=== PATIENT | male | born 1975 | race Hispanic/Latino ===

== ENCOUNTER 2019-01-17 19:34 | Emergency (ER) | payer OTHER ==
[~2019-01-17] VITALS: Ht 172.7 cm; Wt 110.7 kg
[2019-01-17] MEDS ORDERED: SODIUM CHLORIDE 0.9% 1000ML 1,000 ML ONE (19:59)
[2019-01-17] MEDS ORDERED: CEFTRIAXONE SOD 1 GM/NS 50 ML 50 ML IV ONE (20:00)
[2019-01-17] MEDS ORDERED: CEFTRIAXONE SOD 1 GM VIAL ONE (20:10)
[2019-01-17] MEDS ORDERED: SODIUM CHLORIDE 0.9% 1000ML 1,000 ML IV ONE (20:15)
== END 2019-01-17 20:48 | disposition home or self-care (01) ==
LOC: FSED 19:34
DX: J01.00 Acute maxillary sinusitis, unspecified (principal); J00 Acute nasopharyngitis [common cold]; J01.20 Acute ethmoidal sinusitis, unspecified
CPT/HCPCS: 85025; 99283; J0696; J7030

== ENCOUNTER 2019-01-18 18:07 | Inpatient (IN) | payer OTHER ==
[~2019-01-18] VITALS: Ht 172.7 cm; Wt 103.4 kg
--- NOTE | 2019-01-18 18:52 | NUR ---
REPORT TO AMISHA TO
[2019-01-18] MEDS ORDERED: KETOROLAC TROMETHAMINE 30 MG/ML VIAL IV ONE (19:01)
[2019-01-18] MEDS ORDERED: SODIUM CHLORIDE 0.9% 1000ML 1,000 ML IV SCH ×2 (19:15→22:15)
[2019-01-18] MEDS ORDERED: SODIUM CHLORIDE 0.9% 1000ML 1,000 ML ONE (19:24)
[2019-01-18] MEDS ORDERED: KETOROLAC TROMETHAMINE 30 MG/ML VIAL ONE (19:24)
--- NOTE | 2019-01-18 20:27 | Diagnostic Imaging Report ---
History: Pain Comparison studies: None Technique: Axial images were obtained from the skull base to the vertex. Coronal and sagittal reconstructions obtained from the axial data. Dose modulation, iterative reconstruction, and/or weight based adjustment of the mA/kV was utilized to reduce the radiation dose to as low as reasonably achievable. Intravenous contrast: None Findings: Scalp/skull: No abnormalities. No fractures, blastic or lytic lesions. Extra-axial spaces: No masses. No fluid collections. Brain sulci: Appropriate for age. Ventricles: Normal in size and configuration. No hydrocephalus. Parenchyma: No abnormal densities. No masses, hemorrhage, acute or chronic cortical vascular insults. Sellar/suprasellar region: No abnormalities Craniocervical junction: Patent foramen magnum. No Chiari one malformation. Incidental findings: None. IMPRESSION: No abnormalities. Signed by: Dr. Earle Vargas M.D. on 01/18/2019 8:23 PM
--- NOTE | 2019-01-18 22:02 | NUR ---
LP COMPLETED, PT LYING IN SUPINE POSITION. PT INSTRUCTED TO CALL FOR ASSISTANCE IF NEEDED. PT VERBALIZED UNDERSTANDING, FAMILY AT BEDSIDE CALL BROWN WITHIN REACH. VSS
[2019-01-18] MEDS ORDERED: ONDANSETRON HCL INJ 2MG/ML 2ML 2 MG/ML VIAL IV STA (22:07)
[2019-01-18] MEDS ORDERED: MORPHINE SULFATE INJ 4 MG/ML INJ 1ML IV PRN (22:15)
[2019-01-18 22:43] LABS: TOTAL PROTEIN,CSF 177.2 mg/dL (15-40)
[2019-01-18 23:18] LABS: APPEARANCE,CSF CLOUDY (CLEAR); TUBE NUMBER 3
[2019-01-18 23:19] LABS: COLOR,CSF XANTHOCHROMIC (COLORLESS)
[2019-01-18 23:20] LABS: WHITE BLOOD CELL,CSF 1640 cells/uL (0-5)
[2019-01-18 23:21] LABS: LYMPHOCYTES,CSF 88 % (40-80); MONOCYTES,CSF 4 %; NEUTROPHILS,CSF 6 % (0-6); OTHER CELLS,CSF 2 %
[2019-01-18] MEDS ORDERED: SODIUM CHLORIDE 0.9% 50ML 50 ML ONE (23:59)
[2019-01-18] MEDS ORDERED: CEFTRIAXONE SOD 1 GM VIAL ONE ×2 (23:59)
[2019-01-19] VITALS (8 sets, daily range): BP systolic 120–148; BP diastolic 78–98
--- NOTE | 2019-01-19 00:12 | NUR ---
[facility] NOTIFIED, ETA 30-45 MINUTES
[2019-01-19] MEDS ORDERED: ONDANSETRON HCL INJ 2MG/ML 2ML 2 MG/ML VIAL IV PRN (00:45)
[2019-01-19] MEDS ORDERED: VANCOMYCIN 1GM/NS 250 ML 250 ML IV ONE (00:45)
[2019-01-19] MEDS ORDERED: VANCOMYCIN 1GM/NS 250 ML 250 ML IV SCH (00:45)
[2019-01-19] MEDS ORDERED: ACETAMINOPHEN 325 MG TAB PO PRN (00:45)
[2019-01-19] MEDS ORDERED: CEFTRIAXONE SOD 2 GM/NS 100 ML 100 ML IV ONE (00:45)
[2019-01-19] MEDS ORDERED: CIPROFLOXACIN 500 MG TAB ONE (00:52)
--- OUTSIDE RECORDS SUMMARY | 2019-01-19 01:33 | XMS REPORT ---
Author Author [facility] Address Unknown Phone Unavailable Care Team Providers Care Facility Technician Name Role Phone Bailee SERRANO Unavailable Unavailable Problems This patient has no known problems. Allergies, Adverse Reactions, Alerts This patient has no known allergies or adverse reactions. Medications This patient has no known medications. Results Test Description Test Time Test Comments Text Results Atomic Results Result Comments CT BRAIN WO-HOPD 2019-01-18 20:23:00 [place] [address] Patient Name: MARÍA ELENA FLORES MR #: [id number] : 1975 Age/Sex: 43/M Req #: [id number] Adm Physician: Ordered by: BABATUNDE SERRANO MD Report #: [id number] Location: [facility] Room/Bed: Procedure: [id number] HOPD/CT BRAIN WO-HOPD Exam Date: 01/18/19 Exam Time: 1999 REPORT STATUS: Signed History: Pain Comparison studies: None Technique: Axial images were obtained from the skull base to the vertex. Coronal and sagittal reconstructions obtained from the axial data. Dose modulation, iterative reconstruction, and/or weight based adjustment of the mA/kV was utilized to reduce the radiation dose to as low as reasonably achievable. Intravenous contrast: None Findings: Scalp/skull: No abnormali ties. No fractures, blastic or lytic lesions. Extra-axial spaces: No masses. No fluid collections. Brain sulci: Appropriate for age. Ventricles: Normal in size and configuration. No hydrocephalus. Parenchyma: No abnormal densities. No masses, hemorrhage, acute or chronic cortical vascular insults. Sellar/suprasellar region: No abnormalities Craniocervical junction: Patent foramen magnum. No Chiari one malformation. Incidental findings: None. IMPRESSION: No abnormalities. Signed by: Dr. Earle Vargas M.D. on 01/18/2019 8:23 PM Dictated By: EARLE VARGAS MD, MD 22 Transcribed By: ESTEVAN on 01/18/192022 COPY TO: BABATUNDE SERRANO MD
--- NOTE | 2019-01-19 01:52 | NUR ---
Patient admitted to room 205 via stretcher. Patient alert to name, place, time, and Dx: Meningitis. Pt states has flulike symptoms x7 days that is accompanied with a headache. Ambulatory with steady gait. AROM x4 extremities. Last BM 01/18, abdomen soft, round and distended. Urine with normal odor. Oriented to room. Bed low and locked. Call otero within reach. Will continue to monitor.
[2019-01-19] MEDS: SODIUM CHLORIDE 0.9% 1000ML 1,000 ML IV SCH ×3 (02:50→16:33)
--- NOTE | 2019-01-19 06:40 | NUR ---
Patient sitting up in bed. Denies pain or discomfort. Call otero within reach.
[2019-01-19] MEDS ORDERED: IBUPROFEN 600 MG TAB PO SCH (08:00)
[2019-01-19 14:01] LABS: HIV 1&2 AB SCREEN NON-REACTIVE (NONREACTIVE)
[2019-01-19] MEDS: VANCOMYCIN HCL 1.5 GM in SODIUM CHLORIDE 0.9% 250ML 300 ML IV SCH (15:08)
[2019-01-19] MEDS: MORPHINE SULFATE 2 MG/ML SYR 1ML IV PRN ×2 (15:39→23:30)
[2019-01-19 17:10] LABS: BASOPHILS # (AUTO) 0.2 (0.0-0.1); BASOPHILS % 1.3 % (0.0-1.0); EOSINOPHILS # (AUTO) 0.6 (0.0-0.4); EOSINOPHILS % 4.9 % (0.0-6.0); HEMATOCRIT 54.5 % (38.2-49.6); HEMOGLOBIN 18.9 g/dL (14.0-18.0); LYMPHOCYTES # (AUTO) 3.4 (1.0-3.2); LYMPHOCYTES % 29.2 % (18.0-39.1); MEAN CORPUSCULAR HEMOGLOBIN 31.6 pg (28-32); MEAN CORPUSCULAR HGB CONC 34.7 g/dL (31-35); MONOCYTES # (AUTO) 1.2 (0.2-0.8); MONOCYTES % 10.3 % (4.4-11.3); NEUTROPHILS # (AUTO) 6.2 (2.1-6.9); NEUTROPHILS % 53.4 % (38.7-80.0); PLATELET COUNT 310 x10e3/uL (140-360); RED BLOOD COUNT 5.99 x10e6/uL (4.3-5.7); RED CELL DISTRIBUTION WIDTH 13.5 % (11.7-14.4)
[2019-01-19 17:27] LABS: ANION GAP 10.8 mmol/L (8-16); BLOOD UREA NITROGEN 7 mg/dL (7-26); BUN/CREATININE RATIO 8 (6-25); CALCIUM 8.6 mg/dL (8.4-10.2); CARBON DIOXIDE 24 mmol/L (22-29); CHLORIDE 102 mmol/L (98-107); CREATININE, SERUM 0.84 mg/dL (0.72-1.25); EST GLOMERULAR FILTRATION RATE > 60 ML/MIN (60-); GLUCOSE 93 mg/dL (74-118); POTASSIUM 3.8 mmol/L (3.5-5.1); SODIUM 133 mmol/L (136-145)
--- NOTE | 2019-01-19 19:07 | History and Physical ---
CHIEF COMPLAINT: Headaches, fevers. HISTORY OF PRESENT ILLNESS: This is a 43-year-old male, who has no past medical history, reports coming into the emergency room at the [facility] with complaints of headaches and fevers ongoing for the last several days. The patient reports that about a week ago last Friday, the patient began to have some fevers, chills, and some myalgias, had a mild headache, went to [facility] and at that time, he was told he had flu-like symptoms and was discharged home. The patient states that he truly never got better and he reports "dragged it out" until Friday of this last week and went to another local ER and was told that he had similar symptoms of flu-like symptoms with no other issues and was discharged on no antibiotics according to the patient. He reports that his headache was excruciatingly painful and decided to go to [facility] ER yesterday. While there, the CT imaging of the brain was performed, was found to be negative. But an LP was performed and was concerning for underlying meningitis with increased WBCs of 1640 seen and was sent then to [facility] for further management and care. He is currently on IV Rocephin and vancomycin and ID has been consulted. REVIEW OF SYSTEMS: Pertinent positives: Headaches, fevers, chills, and myalgias. Pertinent negatives: Denies any chest pain, palpitation, nausea, vomiting, diarrhea, dysuria, hematuria, frequency, urgency, lightheadedness, dizziness, abdominal pain, or any other complaints. The rest of 14-point review of systems are reviewed with the patient and are negative. MEDICATIONS: None. ALLERGIES: NO KNOWN DRUG ALLERGIES. PAST MEDICAL HISTORY: None. PAST SURGICAL HISTORY: None. FAMILY HISTORY: Hypertension and diabetes. SOCIAL HISTORY: No drugs. No alcohol. Does not smoke. Good social support. He is . PHYSICAL EXAMINATION: VITAL SIGNS: Temperature is 97.6, pulse 78, respiratory rate is 21, blood pressure 146/98, and pulse ox 98% on room air. GENERAL: Not in acute distress. Alert and oriented x3. Cooperative on examination. HEENT: Head; normocephalic, atraumatic. Eyes; pupils are equal, round, and reactive to light bilaterally. Extraocular movements intact bilaterally. Throat; no evidence of erythema or exudates in the posterior pharynx. Has poor dentition. NECK: Supple. Good range of motion. PULMONARY: Clear to auscultation bilaterally. No wheezing, no rales, no rhonchi, no crackles appreciated. CARDIOVASCULAR: Positive S1 and S2. No murmurs, rubs, or gallops appreciated. ABDOMEN: Soft, nondistended, and nontender to palpation. Bowel sounds present. MUSCULOSKELETAL: Strength is 5/5 throughout. No evidence of any muscle deficits on examination. No weakness appreciated. NEUROLOGIC: Cranial nerves II through XII grossly intact. No evidence of any neurological deficits on exam. SKIN: Intact. Warm to touch. Good cap refill. PSYCHIATRIC: Normal affect and mood. EXTREMITIES: No edema. Good range of motion throughout. LABORATORY FINDINGS: Show WBC is 10.2, hemoglobin 18.9, hematocrit is 54, and platelets of 302. Sodium 133, potassium 4.2, bicarb 27, chloride 100, glucose 111, calcium 9, BUN 10, and creatinine is 1. ALT 51, AST 36, and total bilirubin is 1.6. Albumin is 4.3. Urinalysis was found to be negative. LP was cloudy, xanthochromic, WBC 1640, and RBC 14. His neutrophils are 6, lymphocytes is 88, monocytes is 4, glucose 29, and total protein is 177. MICROBIOLOGY: CSF cultures are pending despite gram stain shows no organisms, no WBCs. IMAGING STUDIES: CT brain was found to be negative. IMPRESSION: 1. Concerns for underlying bacterial meningitis. 2. Headaches, fevers, chills, concerning for possible #1. PLAN: At this time, LP performed with pending CSF cultures. Bacterial antigen has been ordered. Current gram stain shows no organisms. He will be treated for underlying bacterial meningitis with 2 g of Rocephin q.12 hours and vancomycin 15 mg/kg q.12. We will get vancomycin trough levels before the fourth dose. Infectious Disease was consulted. CT brain was found to be negative. Get a.m. labs. Hold anticoagulation for now because he just recently had an LP last night. We will likely start Lovenox maybe tomorrow. Discussed plan of care with nursing staff as well as Infectious Disease. We will put him on pain control as well. He is supposed to be on airborne droplets as well. MD RIDDHI Crooks/TORY /[id number]
--- NOTE | 2019-01-19 19:15 | NUR ---
Report received from morning nurse. Patient alert, sitting in bed HOB 75 degrees. Denies pain at this time. Bed low and locked. Call otero within reach. Will continue to monitor.
[2019-01-19] MEDS: CEFTRIAXONE SOD 2 GM/NS 100 ML 100 ML IV SCH (22:00)
[2019-01-19] MEDS ORDERED: CEFTRIAXONE SOD 2 GM/NS 100 ML 100 ML IV SCH (22:00)
[2019-01-19] MEDS: ACETAMINOPHEN 325 MG TAB PO PRN (22:00)
[2019-01-20] VITALS (8 sets, daily range): BP systolic 130–150; BP diastolic 81–94
--- NOTE | 2019-01-20 00:02 | Consultation ---
DATE OF CONSULTATION: REASON FOR CONSULTATION: Meningitis. HISTORY OF PRESENT ILLNESS: This patient is very pleasant 43-year-old white male, denies any past medical history. A week ago started to have some headache fever, chills, not feeling well. [facility] They checked him for flu, it was negative. He was told it was dehydration, given some fluid and pain medication, but the headache got really worse, he came in for a 2nd time to an another different emergency room, at that time, he was also examined and evaluated. He got chest x-ray, he told have some type of infection. He was given an IV shot of some type of antibiotic and oral medication as well as steroid and discharged home. Two days later, the headache became even worse, he could not tolerate it, he had some nausea, he came back to the emergency room. For the 3rd time at this time, spinal tap was done and spinal top showed that he had a WBC of 1640, it was mainly lymphocytes with a glucose of 29 and total protein of 177 too, so he was sent to the emergency room. The patient is being admitted. I was asked to see him urgently. He is currently lying in bed comfortably. He has had severe headaches, worse headache of his life. He said he took some Tylenol and ibuprofen when he came here, he also got steroid. PHYSICAL EXAMINATION: GENERAL: He is currently alert and oriented, does not seem to be in acute distress. VITAL STABLE: Stable, currently, afebrile. HEENT: Not icteric. NECK: Supple, it is painful to move. CHEST: Clear bilateral. HEART: S1 and S2, no murmur. ABDOMEN: Soft. Bowel sounds present. No tenderness. EXTREMITIES: No edema. SKIN: No rash. IMPRESSION: Meningitis, very concerning for bacterial meningitis, partially treated. We will put on IV vancomycin 50 mg/kg q.12 and Rocephin 2 g IV piggyback q.12 hours and send for culture and sensitivity. We will send bacterial antigen, HIV was sent, came back negative. We will start him on Decadron. We will follow. MD KEMAR Marcano/TORY /[id number]
[2019-01-20] MEDS: SODIUM CHLORIDE 0.9% 1000ML 1,000 ML IV SCH ×4 (00:33→21:00)
--- NOTE | 2019-01-20 00:51 | Diagnostic Imaging Report ---
EXAMINATION: CHEST XRAY LINE PLACEMENT INDICATION: ^CHECK PICC PLACEMENT ^[id number] ^0030 COMPARISON: None FINDINGS: AP view TUBES and LINES: Right PICC in place with tip projecting over superior SVC. LUNGS: Lungs are well inflated. Bilateral airspace opacities. PLEURA: No pleural effusion or pneumothorax. HEART AND MEDIASTINUM: The cardiomediastinal silhouette is unremarkable. BONES AND SOFT TISSUES: No acute osseous lesion. Soft tissues are unremarkable. UPPER ABDOMEN: No free air under the diaphragm. IMPRESSION: Right PICC in place with tip projecting over superior SVC. No visible pneumothorax. Bilateral airspace opacities, representing mild edema and/or pneumonia in the appropriate clinical context. Signed by: Dr. Ricardo Culp MD on 01/20/2019 12:47 AM
[2019-01-20] MEDS: HYDROCODONE/APAP 5MG-325MG TAB PO PRN ×4 (02:25→22:17)
[2019-01-20] MEDS: VANCOMYCIN HCL 1.5 GM in SODIUM CHLORIDE 0.9% 250ML 300 ML IV SCH ×2 (03:00→14:36)
[2019-01-20 05:53] LABS: BASOPHILS # (AUTO) 0.1 (0.0-0.1); EOSINOPHILS # (AUTO) 0.3 (0.0-0.4); EOSINOPHILS % 2.7 % (0.0-6.0); HEMATOCRIT 52.2 % (38.2-49.6); HEMOGLOBIN 17.9 g/dL (14.0-18.0); LYMPHOCYTES # (AUTO) 2.7 (1.0-3.2); LYMPHOCYTES % 21.4 % (18.0-39.1); MEAN CORPUSCULAR HGB CONC 34.3 g/dL (31-35); MEAN CORPUSCULAR VOLUME 90.3 fL (81-99); MONOCYTES # (AUTO) 1.3 (0.2-0.8); MONOCYTES % 9.8 % (4.4-11.3); NEUTROPHILS # (AUTO) 8.2 (2.1-6.9); NEUTROPHILS % 64.5 % (38.7-80.0); PLATELET COUNT 287 x10e3/uL (140-360); RED BLOOD COUNT 5.78 x10e6/uL (4.3-5.7); RED CELL DISTRIBUTION WIDTH 13.4 % (11.7-14.4)
[2019-01-20 06:17] LABS: ANION GAP 11.9 mmol/L (8-16); BLOOD UREA NITROGEN 7 mg/dL (7-26); BUN/CREATININE RATIO 9 (6-25); CALCIUM 8.7 mg/dL (8.4-10.2); CARBON DIOXIDE 25 mmol/L (22-29); CHLORIDE 99 mmol/L (98-107); CREATININE, SERUM 0.79 mg/dL (0.72-1.25); EST GLOMERULAR FILTRATION RATE > 60 ML/MIN (60-); GLUCOSE 92 mg/dL (74-118); POTASSIUM 3.9 mmol/L (3.5-5.1); SODIUM 132 mmol/L (136-145)
--- NOTE | 2019-01-20 07:00 | NUR ---
RECEIVED AM REPORT FROM NURSE AND MORNING ROUNDS DONE. PT IS ALERT RESTING IN BED, NO S/S OF DISTRESS. CALL LIGHT WITHIN REACH AND INSTRUCTED PT TO CALL NURSE FOR HELP. PT COMPLAINING OF HEADACHE AND IS REQUESTING MEDICATION
[2019-01-20] MEDS: CEFTRIAXONE SOD 2 GM/NS 100 ML 100 ML IV SCH ×2 (09:50→21:00)
--- NOTE | 2019-01-20 14:11 | Progress Note ---
DATE: 01/20/2019 Medicine Progress Note SUBJECTIVE: The patient reports he is having some headache this morning, but improved after given pain control. Discussed case with Infectious Disease. PICC line has been placed. He will need 2 weeks of IV antibiotic therapy. PHYSICAL EXAMINATION: VITAL SIGNS: Temperature is 97, pulse 81, respiratory rate is 20, blood pressure is 146/93, and pulse ox 100% on room air. GENERAL: Not in acute distress. Alert and oriented x3. Cooperative on examination. HEENT: Head; normocephalic, atraumatic. Eyes; pupils are equal, round, and reactive to light bilaterally. Extraocular movements intact bilaterally. Throat; no evidence of erythema or exudates in the posterior pharynx. Has poor dentition. NECK: Supple. Good range of motion. PULMONARY: Clear to auscultation bilaterally. No wheezing, no rales, no rhonchi, no crackles appreciated. CARDIOVASCULAR: Positive S1 and S2. No murmurs, rubs, or gallops appreciated. ABDOMEN: Soft, nondistended, and nontender to palpation. Bowel sounds present. MUSCULOSKELETAL: Strength is 5/5 throughout. No evidence of any muscle deficits on examination. No weakness appreciated. NEUROLOGIC: Cranial nerves II through XII grossly intact. No evidence of any neurological deficits on exam. SKIN: Intact. Warm to touch. Good cap refill. PSYCHIATRIC: Normal affect and mood. EXTREMITIES: No edema. Good range of motion throughout. LABORATORY FINDINGS: Show white count 12.7, hemoglobin 17.9, hematocrit is 52, and platelets of 287. Chemistry; sodium 132, potassium 3.9, chloride 99, bicarb 25, anion gap of 11, BUN 7, creatinine is 0.79, glucose 92, and calcium is 8.7. HIV nonreactive. CSF microbiology shows no growth to date. IMAGING STUDIES: PICC line has been placed. IMPRESSION: 1. Bacterial meningitis. 2. Headaches, fevers, and chills secondary to bacterial meningitis. PLAN: At this time, CSF cultures are negative, but the patient was receiving antibiotics as an outpatient, which could interfere with the results. Bacterial antigen is still pending. PICC line has been placed. Arranging IV antibiotics as an outpatient with Infectious Disease office. Currently, he has headaches. Pain control was given. We will get repeat labs in the morning. Continue same plan of care. He continues to be on airborne droplets as well. Discussed with nursing staff. MD RIDDHI Crooks/TORY /[id number]
--- NOTE | 2019-01-20 14:41 | Progress Note ---
DATE: SUBJECTIVE: Mumtaz continued to have headache. He is feeling better, but he continues to have headache as mentioned above. He has no fever today. REVIEW OF SYSTEMS: Headache and nausea, but no vomiting. PHYSICAL EXAMINATION: GENERAL: He is currently alert and oriented. Does not seem to be in acute distress. VITAL SIGNS: Stable, currently afebrile. HEENT: He is not icteric. NECK: Supple. CHEST: Clear. HEART: S1 and S2. No murmur. ABDOMEN: Soft. Bowel sounds present. No tenderness. EXTREMITIES: No edema. LABORATORY DATA: White count is coming down and it is 12.75. It is slightly higher. Hemoglobin of 17. His sodium 132 and potassium 3.9. We do not have any new data on the cultures. We did send for bacterial antigen. IMPRESSION: Bacterial meningitis, partially treated. Continue vancomycin. Continue Rocephin. We will get a PICC line. If he improve, we will discharge home with 2 weeks of IV antibiotic as ordered. MD KEMAR Marcano/TORY /[id number]
--- NOTE | 2019-01-20 15:08 | NUR ---
Spoke to Fiona at Dr. Candelaria's office. States still pending insurance authorization for IV abx.
[2019-01-21] VITALS (8 sets, daily range): BP systolic 135–152; BP diastolic 79–97
[2019-01-21] MEDS: VANCOMYCIN HCL 1.5 GM in SODIUM CHLORIDE 0.9% 250ML 300 ML IV SCH ×2 (02:34→15:00)
[2019-01-21] MEDS: HYDROCODONE/APAP 5MG-325MG TAB PO PRN ×3 (03:50→18:14)
[2019-01-21 04:19] LABS: BASOPHILS # (AUTO) 0.2 (0.0-0.1); BASOPHILS % 1.7 % (0.0-1.0); EOSINOPHILS # (AUTO) 0.4 (0.0-0.4); HEMATOCRIT 54.1 % (38.2-49.6); HEMOGLOBIN 18.3 g/dL (14.0-18.0); LYMPHOCYTES # (AUTO) 2.8 (1.0-3.2); LYMPHOCYTES % 25.9 % (18.0-39.1); MEAN CORPUSCULAR HEMOGLOBIN 30.9 pg (28-32); MEAN CORPUSCULAR HGB CONC 33.8 g/dL (31-35); MEAN CORPUSCULAR VOLUME 91.4 fL (81-99); MONOCYTES # (AUTO) 1.3 (0.2-0.8); MONOCYTES % 12.1 % (4.4-11.3); NEUTROPHILS % 55.8 % (38.7-80.0); PLATELET COUNT 286 x10e3/uL (140-360); RED BLOOD COUNT 5.92 x10e6/uL (4.3-5.7); RED CELL DISTRIBUTION WIDTH 13.3 % (11.7-14.4)
[2019-01-21 04:37] LABS: ANION GAP 10.7 mmol/L (8-16); BLOOD UREA NITROGEN 7 mg/dL (7-26); BUN/CREATININE RATIO 8 (6-25); CALCIUM 8.8 mg/dL (8.4-10.2); CARBON DIOXIDE 27 mmol/L (22-29); CHLORIDE 100 mmol/L (98-107); CREATININE, SERUM 0.83 mg/dL (0.72-1.25); EST GLOMERULAR FILTRATION RATE > 60 ML/MIN (60-); GLUCOSE 85 mg/dL (74-118); POTASSIUM 3.7 mmol/L (3.5-5.1); SODIUM 134 mmol/L (136-145)
--- NOTE | 2019-01-21 07:09 | NUR ---
received am report from nurse and morning rounds done. pt is resting in bed, no s/s of distress. call light within reach and instructed pt to call nurse for help. side rails are u
[2019-01-21] MEDS: ACETAMINOPHEN 325 MG TAB PO PRN (08:14)
[2019-01-21] MEDS: SODIUM CHLORIDE 0.9% 1000ML 1,000 ML IV SCH ×2 (08:30→20:13)
[2019-01-21] MEDS: CEFTRIAXONE SOD 2 GM/NS 100 ML 100 ML IV SCH ×2 (09:34→22:09)
--- NOTE | 2019-01-21 12:03 | NUR ---
Spoke with Elena at Dr. Candelaria's office. She states that pt has been approved for IV abx thru their office. ZULEIKA Ramesh was updated.
[2019-01-21] MEDS: KETOROLAC TROMETHAMINE 30 MG/ML VIAL IV PRN (16:08)
--- NOTE | 2019-01-21 16:22 | NUR ---
spoke with Lab about the meningitis bacterial antigen that was ordered previously, CSF specimen will be sent out to lab core today 01/21/19 for testing. Lab said this would take approximately 2-3 days.
--- NOTE | 2019-01-21 18:50 | Progress Note ---
DATE: SUBJECTIVE: Mr. Brar telling me when he woke up this morning. He was feeling better, but then the headache came back and it was really bad. He had to take hydrocodone, but he is currently lying in bed comfortably. No nausea. REVIEW OF SYSTEMS: Otherwise unremarkable. There is nothing new. HEENT: Negative. PULMONARY: Negative. CARDIAC: Negative except mentioned above. PHYSICAL EXAMINATION: VITAL SIGNS: Temperature 98.1, heart rate of 79, respirations 18, blood pressure 135/85. HEENT: Normocephalic. NECK: Supple. No JVD. No lymphadenopathy. No thyromegaly. CHEST: Clear bilateral. HEART: S1, S2. No S3, S4, or murmur. ABDOMEN: Soft. Bowel sounds present. No tenderness. EXTREMITIES: No edema. SKIN: No rash. LABORATORY DATA: White count came down to 10.8, hemoglobin 18.3. Sodium 124, potassium 3.7. Vancomycin trough was 4.3. HIV was negative. We do not have cultures yet. IMPRESSION: Bacterial meningitis, partially treated. Continue vancomycin. Continue Rocephin. Once headache is better, could be discharged home with definitive course of treatment. Continue with IV fluids. Supportive care. We will follow up. MD KEMAR Marcano/TORY /[id number]
--- NOTE | 2019-01-21 18:56 | Progress Note ---
DATE: Medicine Progress Note SUBJECTIVE: The patient still complaining of severe headaches on examination. He is not ready to go home today. PHYSICAL EXAMINATION: VITAL SIGNS: Temperature is 96.9, pulse 79, respiratory rate is 20, blood pressure 143/83, and pulse ox is 100% on room air. GENERAL: Not in acute distress. Alert and oriented x3. Cooperative on examination. HEENT: Head normocephalic, atraumatic. Eyes; pupils are equal, round, and reactive to light bilaterally. Extraocular movements are intact bilaterally. NECK: Supple. Good range of motion. Throat; no evidence of erythema or exudates in the posterior pharynx. Has poor dentition. PULMONARY: Clear to auscultation bilaterally. No wheezing, rales, or rhonchi. No crackles appreciated. CARDIOVASCULAR: Positive S1, S2. No murmurs, rubs, or gallops appreciated. ABDOMEN: Soft, nondistended, and nontender to palpation. Bowel sounds present. MUSCULOSKELETAL: Strength is 5/5 throughout. No evidence of any muscle deficits on examination. No weakness appreciated. NEUROLOGIC: Cranial nerves 2 through 12 grossly intact. No evidence of any neurological deficits on exam. SKIN: Intact. Warm to touch. Good cap refill. PSYCHIATRIC: Normal affect and mood. EXTREMITIES: No edema. Good range of motion throughout. LABORATORY FINDINGS: Show white count is 10.8, hemoglobin 18, hematocrit 54, platelets of 286. Sodium 134, potassium 3.7, chloride 100, bicarbonate 27, anion gap of 10. BUN 7, creatinine is 0.83, glucose 85. HIV panel was negative. IMAGING STUDIES: None. IMPRESSION: 1. Concerns for bacterial meningitis. 2. Headaches, fevers, chills secondary to bacterial meningitis. 3. Severe headaches. 4. He also has polycythemia vera. PLAN: At this time, CSF cultures are negative. Still pending the bacterial antigen for CSF. PICC line is in place. Continue with IV antibiotics. IV antibiotics have been arranged by the clinic, but the patient is still complaining of severe headache. He is not ready for discharge. I will go ahead and give him some Toradol p.r.n. for pain. Continue with antibiotics for now. Warm droplets have been discontinued. I will go ahead and consult with Hematology/Oncology today with hemoglobin of 18.3. 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 MD RIDDHI rCooks/TORY /[id number]
--- NOTE | 2019-01-21 19:00 | NUR ---
RECEIVED PATIENT IN BEDSIDE REPORT. PATIENT RESTING IN BED AT THIS TIME. MINIMAL PAIN REPORTED HE RECENTLY GOT PAIN MEDS. NO S&S OF DISTRESS NOTED. BED LOCKED IN LOWEST POSITION, SIDE RAILS UPX2, CALL LIGHT IN REACH.
[2019-01-22] VITALS (8 sets, daily range): BP systolic 135–152; BP diastolic 86–101
[2019-01-22] MEDS: KETOROLAC TROMETHAMINE 30 MG/ML VIAL IV PRN ×3 (03:14→21:37)
[2019-01-22] MEDS: VANCOMYCIN HCL 1.5 GM in SODIUM CHLORIDE 0.9% 250ML 300 ML IV SCH (03:34)
--- NOTE | 2019-01-22 04:33 | Consultation ---
DATE OF CONSULTATION: 01/21/2019 REQUESTING PHYSICIAN: Karan Quintanilla MD CONSULTING PHYSICIAN: Gurvinder Johnson MD Hematology/Oncology Service. REASON FOR CONSULTATION: Evaluation and management of the patient with polycythemia. HISTORY OF PRESENTING ILLNESS: Mr. Brar is a very pleasant 43-year-old gentleman with no significant past medical history, presented to the Emergency Department due to complaining of headache along with fever, which has been going on for the last several days. He underwent workup including lumbar puncture, concerning for meningitis. The patient also noted to have marked elevated hemoglobin and hematocrit. We did not get better with IV hydration. Subsequently, Hematology/Oncology has been consulted to assist with the management. Presently, he is lying comfortably, not in acute distress, breathing normally. He denies any nausea, vomiting, fever, chills, headache, or blurring of vision. His headache is improved, but still intermittently get worse. He states that he has taken testosterone 5 years ago, but has not had any steroid injection or anything else recently. PAST MEDICAL HISTORY: None. PAST SURGICAL HISTORY: None. FAMILY HISTORY: Positive for hypertension and diabetes mellitus. SOCIAL HISTORY: Denies history of smoking, alcohol use, or illicit drug use. He is and has a good social support. ALLERGIES: NO KNOWN DRUG ALLERGIES. CURRENT MEDICATIONS: Reviewed as per electronic medical record. REVIEW OF SYSTEMS: A 14-point review of systems negative except as mentioned per history of presenting illness. PHYSICAL EXAMINATION: VITAL SIGNS: Reviewed as per electronic medical record. HEENT: PERRLA. Extraocular movement intact. Head is atraumatic and normocephalic. NECK: Supple. CVS: S1 and S2 audible. RESPIRATORY: Decreased bilateral air entry. ABDOMEN: Soft. Positive bowel sounds. EXTREMITIES: Negative edema. NEURO: The patient is alert and awake. LABORATORY DATA: White blood cell count of 10.8, hemoglobin 18.3, hematocrit 54.1, platelets 286. BUN 7, creatinine 0.8. ASSESSMENT AND PLAN: Mr. Brar is a very pleasant 43-year-old gentleman with no significant past medical history, presents to the Emergency Department due to headaches and fever. He has been seen and evaluated by Infectious Disease Service and diagnosed with bacterial meningitis. He was treated with IV antibiotics. Apparently, he continued to have intermittent headache. His laboratory workup also revealed persistent polycythemia. Hematology/Oncology has been consulted to assist with the management. I reviewed the records and discussed at length with the patient about his current disease and importance of further workup. Cause of polycythemia is uncertain. The patient has a history of taking testosterone approximately 5 years ago, but has not had any injection recently. Persistent erythrocytosis could be a primary bone marrow process, however, secondary process cannot be ruled out completely. At this point, recommendation would be to get JAK2 evaluation as well as erythropoietin level. Due to symptoms and elevated counts, I will start the patient on phlebotomy. If he goes home, he will follow up in an outpatient setting. Thank you for the consultation. I will continue to be available. Please call with questions. Gurvinder Johnson MD IJ/MODL /[id number]
--- NOTE | 2019-01-22 07:00 | NUR ---
BEDSIDE SHIFT REPORT RECEIVED FROM THE BONE GRINDER RN. EDUCATED PT ABOUT FALL PRECAUTIONS. PT VERBALIZED UNDERSTANDING. CALL LIGHT WITH IN EASY REACH. BED IS LOCKED. FAMILY MEMBER AT BEDSIDE. PT DENIES NEEDS AT THIS TIME.
[2019-01-22] MEDS: SODIUM CHLORIDE 0.9% 1000ML 1,000 ML IV SCH ×2 (08:33→08:41)
[2019-01-22] MEDS: CEFTRIAXONE SOD 2 GM/NS 100 ML 100 ML IV SCH ×2 (10:37→21:32)
--- NOTE | 2019-01-22 15:32 | NUR ---
CALLED RADIOLOGY REGARDING BLOOD PATCHES PER DR. HATCH
[2019-01-22] MEDS ORDERED: SUMATRIPTAN SUCCINATE 6 MG/0.5 ML VIAL SC ONE (15:45)
[2019-01-22] MEDS: VANCOMYCIN HCL 2 GM in SODIUM CHLORIDE 0.9% 500ML 500 ML IV SCH ×2 (16:29→17:00)
--- NOTE | 2019-01-22 16:30 | NUR ---
VANCOMYCIN ARRIVED FROM PHARMACY. PT IS GOING FOR PROCEDURE
[2019-01-22] MEDS ORDERED: IOPAMIDOL 300 MG/ML 15ML VIAL IT ONE (16:40)
--- NOTE | 2019-01-22 16:45 | NUR ---
PT OFF UNIT FOR PROCEDURE IN SAFE CONDITION.
--- NOTE | 2019-01-22 17:00 | NUR ---
PT BACK TO UNIT . DENIES NEEDS AT THIS TIME.
--- NOTE | 2019-01-22 17:47 | Progress Note ---
DATE: 01/22/2019 Medicine Progress Note SUBJECTIVE: The patient still complains of headache despite getting Toradol. I have talked to him about possibly we can do a blood patch, but we will have to see if radiology does not here at this facility. He did have phlebotomy by Hematology this morning. LAB FINDINGS: Show white count 10.8, hemoglobin 18.0, hematocrit 54, platelets of 286. The therapeutic phlebotomy 250 mL removed. Chemistry; sodium 134, potassium 3.7, chloride 100, bicarb 27, anion gap of 10, BUN 7, creatinine 0.83, glucose 85, calcium is 8.8. Erythropoietin level is pending. Several serologies, HIV is nonreactive. JAK2 mutation is pending. Microbiology, no growth after three days. IMAGING STUDIES: None today. PHYSICAL EXAMINATION: VITAL SIGNS: Temperature is 97, pulse is 86, respiratory rate is 18, blood pressure 140/86, pulse ox 96% on room air. GENERAL: No acute distress. Alert and oriented x3. Cooperative on examination. HEENT: Head, normocephalic and atraumatic. Eyes; pupils are reactive to light bilaterally. Extraocular movements are intact bilaterally. NECK: Supple. Good range of motion. Throat; no evidence of erythema or exudates in the posterior pharynx. Has poor dentition. PULMONARY: Clear to auscultation bilaterally. No wheezing, rales, or rhonchi. No crackles appreciated. CARDIOVASCULAR: Positive S1, S2. No murmurs, rubs, or gallops appreciated. ABDOMEN: Soft, nondistended, and nontender to palpation. Bowel sounds present. MUSCULOSKELETAL: Strength is 5/5 throughout. No evidence of any muscle deficits on examination. NEUROLOGIC: Cranial nerve II through XII grossly intact. No evidence of any neurological deficits on exam. SKIN: Intact. Warm to touch. Good cap refill. PSYCHIATRIC: Normal affect and mood. EXTREMITIES: No edema. Good range of motion throughout. IMPRESSION: 1. Concern for bacterial meningitis. 2. Headaches, fevers, chills secondary to bacterial meningitis. 3. Severe headaches. 4. Polycythemia vera. PLAN: At this time, the patient still continues to complain of severe headaches on examination. We will get MRI of the brain with and without contrast to further evaluate injury. Continue with Toradol for pain control. In the event, his headaches do not get better, I am going to check with Radiology if they do blood patches, which could be contributing to his headache at this time. I have discussed this with the patient as well and we are going to find out with Radiology and see if they are able to perform that. In relation to his antibiotics, we will continue with same plan of care and ID is following. The patient had phlebotomy today 250 mL was removed be Hematology Oncology recommendations. I will get a.m. labs as well. We will also give him some Imitrex for his headaches. In the event if his headache has not improved, we will consider giving medications like tizanidine or gabapentin and possibly getting a Neurology consultation. Otherwise, we will continue same plan of care and monitor closely. MD RIDDHI Crooks/TORY /[id number]
--- NOTE | 2019-01-22 19:00 | NUR ---
BEDSIDE SHIFT REPORT GIVEN TO THE LAMP DEVELOPER RN. PT DENIED FURTHER NEEDS.
--- NOTE | 2019-01-22 19:00 | NUR ---
RECEIVED PATIENT IN BEDSIDE SHIFT REPORT. MINIMAL PAIN REPORTED. NO S&S OF DISTRESS REPORTED. BED LOCKED IN LOWEST POSITION, SIDE RAILS UPX2, CALL LIGHT IN REACH.
[2019-01-23] VITALS (8 sets, daily range): BP systolic 132–148; BP diastolic 79–99
[2019-01-23] MEDS: VANCOMYCIN HCL 2 GM in SODIUM CHLORIDE 0.9% 500ML 500 ML IV SCH ×2 (04:26→15:06)
[2019-01-23 05:26] LABS: BASOPHILS # (AUTO) 0.2 (0.0-0.1); BASOPHILS % 1.5 % (0.0-1.0); EOSINOPHILS # (AUTO) 0.5 (0.0-0.4); EOSINOPHILS % 4.5 % (0.0-6.0); HEMATOCRIT 50.2 % (38.2-49.6); HEMOGLOBIN 17.4 g/dL (14.0-18.0); LYMPHOCYTES % 28.6 % (18.0-39.1); MEAN CORPUSCULAR HEMOGLOBIN 31.5 pg (28-32); MEAN CORPUSCULAR HGB CONC 34.7 g/dL (31-35); MEAN CORPUSCULAR VOLUME 90.8 fL (81-99); MONOCYTES # (AUTO) 1.2 (0.2-0.8); MONOCYTES % 11.9 % (4.4-11.3); NEUTROPHILS # (AUTO) 5.5 (2.1-6.9); NEUTROPHILS % 52.8 % (38.7-80.0); PLATELET COUNT 276 x10e3/uL (140-360); RED BLOOD COUNT 5.53 x10e6/uL (4.3-5.7); RED CELL DISTRIBUTION WIDTH 13.3 % (11.7-14.4)
[2019-01-23 06:02] LABS: ANION GAP 11.8 mmol/L (8-16); BLOOD UREA NITROGEN 10 mg/dL (7-26); BUN/CREATININE RATIO 12 (6-25); CALCIUM 8.3 mg/dL (8.4-10.2); CARBON DIOXIDE 26 mmol/L (22-29); CHLORIDE 105 mmol/L (98-107); CREATININE, SERUM 0.81 mg/dL (0.72-1.25); EST GLOMERULAR FILTRATION RATE > 60 ML/MIN (60-); GLUCOSE 97 mg/dL (74-118); POTASSIUM 3.8 mmol/L (3.5-5.1); SODIUM 139 mmol/L (136-145)
[2019-01-23] MEDS: KETOROLAC TROMETHAMINE 30 MG/ML VIAL IV PRN (06:22)
--- NOTE | 2019-01-23 07:00 | NUR ---
RECEIVED BEDSIDE SHIFT REPORT RECEIVED FROM THE DIRECTOR OF PLACEMENT RN. EDUCATED PT ABOUT FALL PRECAUTIONS. PT VERBALIZED UNDERSTANDING. BED IS LOCKED AND IN LOWEST POSITION, SIDE RAILS UPX2, CALL LIGHT WITH IN EASY REACH. FAMILY AT BEDSIDE. PT DENIES NEEDS AT THIS TIME.
--- NOTE | 2019-01-23 09:00 | NUR ---
PICC LINE DRESSING CHANGE COMPLETED. PT DENIES NEEDS AT THIS TIME.
[2019-01-23] MEDS: CEFTRIAXONE SOD 2 GM/NS 100 ML 100 ML IV SCH ×2 (09:32→21:22)
[2019-01-23] MEDS ORDERED: TIZANIDINE HCL 4 MG TAB PO PRN (13:45)
--- NOTE | 2019-01-23 15:00 | NUR ---
PT BP HIGH. PAGED DR HATCH AND LEFT MESSAGE REGARDING BP READINGS. NO NEW ORDERS RECEIVED.
--- NOTE | 2019-01-23 15:31 | Progress Note ---
DATE: 01/23/2019 Medicine Progress Note. SUBJECTIVE: The patient reports still having some headaches episodically, but much improved compared to yesterday. Radiology evaluated the patient yesterday, stated that since this headaches is not positional, blood patch possibly would not be very helpful. I did order an MRI yesterday of the brain, which was not performed. We will discuss with nursing staff. On any rate due to his excruciating headaches, I will go ahead and get a Neurology consultation to see if that would be of help. I discussed this with the patient and nursing staff. OBJECTIVE: VITAL SIGNS: Temperature 97.9, pulse 80, respiratory rate is 20, blood pressure 147/99, pulse ox 96% on room air. GENERAL: Not in acute distress. Alert and oriented x3. Cooperative on examination. HEENT: Head normocephalic, atraumatic. Eyes; pupils are equal, round, and reactive to light bilaterally. Extraocular movements are intact bilaterally. NECK: Supple. Good range of motion. Throat; no evidence of erythema or exudates in the posterior pharynx. Has poor dentition. PULMONARY: Clear to auscultation bilaterally. No wheezing, rales, or rhonchi. No crackles appreciated. CARDIOVASCULAR: Positive S1, S2. No murmurs, rubs, or gallops appreciated. ABDOMEN: Soft, nondistended, and nontender to palpation. Bowel sounds present. MUSCULOSKELETAL: Strength is 5/5 throughout. No evidence of any muscle deficits on examination. No weakness appreciated. NEUROLOGIC: Cranial nerves II through XII grossly intact. No evidence of any neurological deficits on exam. SKIN: Intact. Warm to touch. Good cap refill. PSYCHIATRIC: Normal affect and mood. EXTREMITIES: No edema. Good range of motion throughout. LAB FINDINGS: Show white count 10.4, hemoglobin 17, hematocrit is 50, platelets of 276. Chemistries, reviewed and stable. IMPRESSION: 1. Concerns for bacterial meningitis. 2. Severe headache. 3. Polycythemia. PLAN: At this time, still complains of headaches, but much improved. We will add tizanidine for headaches. MRI of the brain is pending. Blood patch was not performed yesterday as the radiologist felt like the patient's headaches are not related to the LP. There was no further phlebotomy performed. We will repeat labs in the morning. Pending MRI of the brain with and without contrast. If the headaches persist, I will go ahead and get a Neurology consultation to evaluate the patient. But, we will await for the MRI of the brain as well. Discussed plan of care with nursing staff and the patient. MD RIDDHI Crooks/MODL /[id number]
--- NOTE | 2019-01-23 19:23 | NUR ---
BEDSIDE SHIFT REPORT RECEIVED FROM THE TARE WEIGHER RN. PT DENIED FURTHER NEEDS.
[2019-01-24] VITALS (7 sets, daily range): BP systolic 129–155; BP diastolic 81–97
[2019-01-24] MEDS: VANCOMYCIN HCL 2 GM in SODIUM CHLORIDE 0.9% 500ML 500 ML IV SCH ×2 (03:30→16:14)
[2019-01-24 06:38] LABS: BASOPHILS # (AUTO) 0.2 (0.0-0.1); BASOPHILS % 1.6 % (0.0-1.0); EOSINOPHILS # (AUTO) 0.6 (0.0-0.4); EOSINOPHILS % 4.6 % (0.0-6.0); HEMATOCRIT 50.7 % (38.2-49.6); HEMOGLOBIN 16.8 g/dL (14.0-18.0); MEAN CORPUSCULAR HEMOGLOBIN 30.3 pg (28-32); MEAN CORPUSCULAR HGB CONC 33.1 g/dL (31-35); MEAN CORPUSCULAR VOLUME 91.5 fL (81-99); MONOCYTES # (AUTO) 1.2 (0.2-0.8); MONOCYTES % 10.3 % (4.4-11.3); NEUTROPHILS % 57.8 % (38.7-80.0); PLATELET COUNT 256 x10e3/uL (140-360); RED BLOOD COUNT 5.54 x10e6/uL (4.3-5.7); RED CELL DISTRIBUTION WIDTH 13.5 % (11.7-14.4)
[2019-01-24 07:00] LABS: ANION GAP 12.8 mmol/L (8-16); BLOOD UREA NITROGEN 9 mg/dL (7-26); BUN/CREATININE RATIO 11 (6-25); CALCIUM 8.9 mg/dL (8.4-10.2); CARBON DIOXIDE 25 mmol/L (22-29); CHLORIDE 105 mmol/L (98-107); CREATININE, SERUM 0.84 mg/dL (0.72-1.25); EST GLOMERULAR FILTRATION RATE > 60 ML/MIN (60-); GLUCOSE 110 mg/dL (74-118); POTASSIUM 3.8 mmol/L (3.5-5.1); SODIUM 139 mmol/L (136-145)
[2019-01-24] MEDS: CEFTRIAXONE SOD 2 GM/NS 100 ML 100 ML IV SCH ×2 (09:58→22:00)
[2019-01-24] MEDS: KETOROLAC TROMETHAMINE 30 MG/ML VIAL IV PRN (09:58)
--- NOTE | 2019-01-24 15:20 | NUR ---
Visit made by the Spiritual Care Department Pastoral Visitor, Cory Dooley. PV provided pastoral presence, hospitality, and supportive listening. Pastoral Visitor informed pt/family of the scope of Facility Maintenance Helper Services and availability. XIAO MARTINEZ Wind Turbine Technician Spiritual Care Department O: [phone] Pager: [phone] ([phone] calling from)
--- NOTE | 2019-01-24 16:17 | Progress Note ---
DATE: 01/24/2019 Medicine Progress Note SUBJECTIVE: The patient is doing well today with no other complaints. He does state having episodic headaches that occurred this morning. The last night he slept very well with no issues. He denies headache last night. PHYSICAL EXAMINATION: VITAL SIGNS: Temperature is 97.3, pulse is 99, respiratory rate is 18, blood pressure 129/81, pulse ox 95% on room air. GENERAL: Not in acute distress. Alert and oriented x3. Cooperative on examination. HEENT: Head; normocephalic, atraumatic. Eyes; pupils are equal, round, and reactive to light bilaterally. Extraocular movements are intact bilaterally. NECK: Supple. Good range of motion. Throat; no evidence of erythema or exudates in the posterior pharynx. Has poor dentition. PULMONARY: Clear to auscultation bilaterally. No wheezing, rales, or rhonchi. No crackles appreciated. CARDIOVASCULAR: Positive S1, S2. No murmurs, rubs, or gallops appreciated. ABDOMEN: Soft, nondistended, and nontender to palpation. Bowel sounds present. MUSCULOSKELETAL: Strength is 5/5 throughout. No evidence of any muscle deficits on examination. No weakness appreciated. NEUROLOGIC: Cranial nerves II through XII grossly intact. No evidence of any neurological deficits on exam. SKIN: Intact. Warm to touch. Good cap refill. PSYCHIATRIC: Normal affect and mood. EXTREMITIES: No edema. Good range of motion throughout. LABORATORY DATA: Show white count 12, hemoglobin 16.8, hematocrit is 50.7, platelets of 256. Chemistries; reviewed and stable. IMPRESSION: 1. Concern for bacterial meningitis. 2. Severe headache. 3. Polycythemia. PLAN: At this time, he continues to have headaches, but he states that it is much improved. MRI of the brain pending for tomorrow. He is on pain control Toradol p.r.n. as well as tizanidine p.r.n. Neurology was consulted. ID is following for the underlying bacterial meningitis. Otherwise, get a.m. labs. Monitor closely. MD RIDDHI Crooks/TORY /[id number]
--- NOTE | 2019-01-24 16:32 | Progress Note ---
DATE: SUBJECTIVE: Mr. Brar is feeling better. His headache has improved. REVIEW OF SYSTEMS: There is nothing new. He slept well last night. PHYSICAL EXAMINATION: GENERAL: He is currently alert, oriented, and does not seem to be in acute distress. VITAL SIGNS: Stable, currently afebrile. HEENT: Not icteric. NECK: Supple. CHEST: Clear. HEART: S1, S2. No murmur. ABDOMEN: Soft. Bowel sounds present. No tenderness. EXTREMITIES: No edema. LABORATORY DATA: We called the lab, there is no specimen. No new data. IMPRESSION: Bacterial meningitis, partially treated. No pathogen. Clinically better. We will plan to discharge home tomorrow to finish 2 weeks of vancomycin and Rocephin. Discussed with the patient, discussed with attending. MD KEMAR Marcano/TORY /[id number]
[2019-01-25] VITALS (9 sets, daily range): BP systolic 140–159; BP diastolic 72–105
[2019-01-25 04:08] LABS: BASOPHILS # (AUTO) 0.2 (0.0-0.1); BASOPHILS % 1.6 % (0.0-1.0); EOSINOPHILS # (AUTO) 0.6 (0.0-0.4); HEMATOCRIT 49.2 % (38.2-49.6); LYMPHOCYTES # (AUTO) 2.7 (1.0-3.2); LYMPHOCYTES % 22.1 % (18.0-39.1); MEAN CORPUSCULAR HEMOGLOBIN 31.5 pg (28-32); MEAN CORPUSCULAR HGB CONC 34.6 g/dL (31-35); MEAN CORPUSCULAR VOLUME 91.3 fL (81-99); MONOCYTES # (AUTO) 1.3 (0.2-0.8); MONOCYTES % 10.9 % (4.4-11.3); NEUTROPHILS # (AUTO) 7.1 (2.1-6.9); NEUTROPHILS % 59.6 % (38.7-80.0); PLATELET COUNT 257 x10e3/uL (140-360); RED BLOOD COUNT 5.39 x10e6/uL (4.3-5.7); RED CELL DISTRIBUTION WIDTH 13.9 % (11.7-14.4)
[2019-01-25 04:25] LABS: ANION GAP 12.9 mmol/L (8-16); BLOOD UREA NITROGEN 9 mg/dL (7-26); BUN/CREATININE RATIO 11 (6-25); CALCIUM 9.2 mg/dL (8.4-10.2); CARBON DIOXIDE 26 mmol/L (22-29); CHLORIDE 104 mmol/L (98-107); CREATININE, SERUM 0.84 mg/dL (0.72-1.25); EST GLOMERULAR FILTRATION RATE > 60 ML/MIN (60-); GLUCOSE 87 mg/dL (74-118); POTASSIUM 3.9 mmol/L (3.5-5.1); SODIUM 139 mmol/L (136-145)
[2019-01-25] MEDS: VANCOMYCIN HCL 2 GM in SODIUM CHLORIDE 0.9% 500ML 500 ML IV SCH ×2 (06:30→16:00)
--- NOTE | 2019-01-25 07:00 | NUR ---
received am report from rn and morning rounds done. pt is alert resting in bed, no s/s of distress. call light within reach and instructed pt to call nurse for help. side rails are up
[2019-01-25] MEDS: KETOROLAC TROMETHAMINE 30 MG/ML VIAL IV PRN ×2 (09:48→22:53)
[2019-01-25] MEDS: CEFTRIAXONE SOD 2 GM/NS 100 ML 100 ML IV SCH ×2 (11:03→21:12)
[2019-01-25] MEDS ORDERED: GADOBENATE DIMEGLUMINE 1 ML IV ONE (11:24)
--- NOTE | 2019-01-25 12:42 | Progress Note ---
DATE: 01/25/2019 Medicine Progress Note SUBJECTIVE: The patient is stable. Reports having some headaches. He is scheduled for his MRI of the brain. The patient still wants MRI of the brain being performed while he is here. PHYSICAL EXAMINATION: VITAL SIGNS: The patient is afebrile, normotensive, respiratory rate is good. GENERAL: Not in acute distress. Alert and oriented x3. Cooperative on examination. HEENT: Head; normocephalic, atraumatic. Eyes; pupils are equal, round, and reactive to light bilaterally. Extraocular movements intact bilaterally. Throat; no evidence of erythema or exudates in the posterior pharynx. Has poor dentition. NECK: Supple. Good range of motion. PULMONARY: Clear to auscultation bilaterally. No wheezing, no rales, no rhonchi, no crackles appreciated. CARDIOVASCULAR: Positive S1 and S2. No murmurs, rubs, or gallops appreciated. ABDOMEN: Soft, nondistended, and nontender to palpation. Bowel sounds present. MUSCULOSKELETAL: No evidence of any muscle deficits on examination. No weakness appreciated. NEUROLOGIC: Cranial nerve II through XII grossly intact. No evidence of any neurological deficits on exam. SKIN: Intact. Warm to touch. Good cap refill. PSYCHIATRIC: Normal affect and mood. EXTREMITIES: No edema. Good range of motion throughout. LABORATORY DATA: Labs show white count 11.9, hemoglobin 17, hematocrit 49, his platelets of 257. Chemistries are stable. IMPRESSION: 1. Concern for bacterial meningitis. 2. Severe headache. 3. Polycythemia. PLAN: At this time, the patient still reports having headaches and MRI of the brain is pending. The patient requests to have the MRI done before he leaves. His antibiotics have been arranged at the [facility]. I need to get the results and make sure of the timing of the results of the MRI. At this time, will likely stay overnight, get discharged in the morning to follow up, and get antibiotics at Infectious Disease office. I am not sure when he can truly go back to work, I am not sure how long he needs to be on the treatment that was set up at [facility] Clinic, if he wanted to extend the time or not, it is not documented. I will reach out to MS and go from there. Otherwise the patient will stay overnight and we will monitor closely. MD RIDDHI Crooks/TORY /[id number]
--- NOTE | 2019-01-25 16:16 | NUR ---
Nutrition LOS Note RD Recommendation for Physician: - Rec regular diet as medically appropriate Plan of Care: RD following, monitoring for tolerance and adequacy Nutrition reason for involvement: LOS Primary Diagnose(s): bacterial meningitis PMH: none Ht: 68in Wt: 228.06lb BMI: 34.7kg/m2 IBW: 154lb +/- 10% RD Assessment: (01/25) Chart reviewed. Labs and meds reviewed. 43yo M, who was admitted for meningitis. Visited pt for LOS day 6. Pt reported good appetite with 75-100% recorded meal intake. No GI complains reported. +BM. Pt denied any chewing or swallowing difficulty. Weight has been stable. Will continue to monitor and follow. Current Diet: cardiac diet Malnutrition Evaluation (01/25/2019) The patient does not meet criteria for a specified degree of malnutrition at this time. Will re-evaluate at follow-up as appropriate. Energy intake: Adequate PO intake reported Weight loss: No weight loss reported Fat loss: no loss identified Muscle loss: no loss identified Supporting Evidence: Fluid accumulation: {no accumulation identified} Functional Status: {no changes} Diet Education Needs Assessment: Diet education not indicated. Nutrition Care Level: low Signed: Amy Méndez, MS, RD, LD
--- NOTE | 2019-01-25 20:04 | Progress Note ---
DATE: SUBJECTIVE: Mr. Pandya is feeling better today. His headache has improved. REVIEW OF SYSTEMS: Otherwise negative. HEENT: Negative. PULMONARY: Negative. CARDIAC: Negative. cultures are still not back. PHYSICAL EXAMINATION: GENERAL: He is currently alert and oriented. Does not seem to be in acute distress. VITAL SIGNS: Stable, afebrile. HEENT: He is not icteric. NECK: Supple. CHEST: Clear bilateral. HEART: S1 and S2. No S3, S4, or murmur. ABDOMEN: Soft. Bowel sounds present. No tenderness. EXTREMITIES: No edema. SKIN: No rash. LABORATORY DATA: White count 11.97 and hemoglobin 17. Sodium 139 and potassium 3.9. Vancomycin trough was 7.3. IMPRESSION: Bacterial meningitis by abnormal spinal fluid. Cultures are not done. Bacteria antigen was not done, even though I sent both. The plan is to finish 14 days of these 2 antibiotics. Follow up clinically. Clinically, he seems to be better to discharge home first thing in the morning. He has an appointment in the office to receive IV antibiotic at 10. MD KEMAR Marcano/TORY /[id number]
--- NOTE | 2019-01-26 02:35 | Consultation ---
DATE OF CONSULTATION: 01/25/2019 Neurology Consult Note HISTORY OF PRESENT ILLNESS: Mr. Brar is a 43-year-old man with no significant past medical history, admitted to [facility] on January 18, 2019, with meningitis, bacterial per Infectious Disease. Prior to and throughout his hospitalization, Mr. Brar has experienced headaches. A Neurology consultation is requested for further evaluation and treatment of those headaches. Mr. Brar describes his headaches as follows: The pain is located at the temples and does not radiate. The pain is described as pressure, which is rated a 5/10 to 6/10. Intermittently, Mr. Brar will experience a pounding pain at the temples. When this occurs, the pain is rated at 10/10. There are no other symptoms associated with the headaches. Specifically, Mr. Brar does not report photophobia, phonophobia, nausea, vomiting, dizziness, or confusion associated with the above headaches. Mr. Brar does report neck stiffness, but he attributes this to sleeping in "such an uncomfortable bed for the past week." Prior to his admission, Mr. Brar reports the above described headaches would occasionally awaken him from sleep. The patient does report the headaches have gradually improved during his hospitalization. He reports his headaches are well controlled with the current pain medications. Mr. Brar does report a prior history of occasional headaches as a teenager and young adult. However, the patient states it has been approximately 20 years since he experienced a severe headache. REVIEW OF SYSTEMS: Fevers, chills, diffuse myalgias, confusion, headache, neck stiffness. Otherwise, a 12-point review of systems is negative. PAST MEDICAL HISTORY: None. PAST SURGICAL HISTORY: None. PAST HOSPITALIZATIONS: Renal insufficiency as a teenager. FAMILY MEDICAL HISTORY: Hypertension and diabetes mellitus. The patient's father is undergoing treatment for lung cancer. The patient's mother and a sister have rheumatoid arthritis. SOCIAL HISTORY: Mr. Brar is . 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 The patient does report current tobacco use. He smokes one pack of cigarettes per week. Mr. Brar endorses social alcohol use. He does not report current or prior recreational drug use. HOME MEDICATIONS: None. HOSPITAL MEDICATIONS: Tylenol, ceftriaxone, [place], Toradol, morphine, Zofran, tizanidine, and vancomycin. ALLERGIES: NO KNOWN DRUG ALLERGIES. NO KNOWN FOOD ALLERGIES. NO KNOWN ALLERGIES TO LATEX. NO KNOWN ALLERGIES TO IODINE OR OTHER CONTRAST MATERIALS. PHYSICAL EXAMINATION: VITAL SIGNS: Height 68 inches, weight 228 pounds, BMI 34.7 kg/m2, blood pressure 159/88 mmHg, pulse 82 beats per minute, respiratory rate 20 breaths per minute, and oxygen saturation 100% on room air. GENERAL: The patient is awake and alert, does not appear distressed. Obese. HEENT: Normocephalic and atraumatic. Pupils are equal, round, and reactive to light. Moist mucous membranes. NECK: Supple. No appreciable thyromegaly. No appreciable carotid bruits. CARDIOVASCULAR: S1 and S2, regular rate and rhythm. No murmurs, rubs, or gallops. RESPIRATORY: Clear to auscultation bilaterally. No wheezes, rhonchi, or rales. EXTREMITIES: The skin is warm and dry. No clubbing, cyanosis, or edema. The posterior tibial and dorsalis pedis pulses are 2+ and symmetric. SKIN: No rashes or lesions. NEUROLOGIC: MEMORY/ATTENTION: The patient is awake and alert, oriented to person, place, time, and situation. Cranial Nerves: Cranial nerve 1 - not tested. Cranial nerve 2, 3, 4, and 6 - pupils are equal and round, react briskly to light (from 4 mm to 2 mm). Extraocular movements intact. No nystagmus. Cranial nerve 5 - sensation to light touch and pinprick is intact in the bilateral V1 through V3 distributions. Strength in the temporalis and masseter muscles is within normal limits. Cranial nerve 7 - the face is symmetric as are all facial movements. Strength is within normal limits. Cranial nerve 8 - hearing is intact to finger rub bilaterally. Cranial nerve 9, 10 - the soft palate elevates equally and symmetrically. Cranial nerve 11 - normal strength of the bilateral sternocleidomastoid and trapezius muscles. Cranial nerve 12 - the tongue protrudes midline and moves symmetrically from [id number]. Strength: Bulk is normal. Strength is 5/5 in the bilateral deltoids, biceps, triceps, wrist flexors and extensors, finger flexors and extensors, intrinsic hand muscles, hip flexors, knee flexors and extensors, ankle dorsiflexion and plantar flexion, and intrinsic foot muscles. Tone is normal. DTRs: Deep tendon reflexes are 2+ and symmetric at the triceps, biceps, brachioradialis, patellas, and Achilles. Plantar responses are flexor bilaterally. Sensation: Sensation is intact to light touch and pinprick in both arms and both legs. Cerebellar: [id number] and heel-hurt movements are intact without dysmetria or other impairment. Gait: Deferred. Speech: Spontaneous speech is normal without appreciable dysarthria or aphasia. Repetition is intact. Involuntary Movements: None. Pronator Drift: None. LABORATORY DATA: The most recent basic metabolic panel is unremarkable. The most recent CBC with differential and platelets reveals an elevated white blood cell count of 11.97 with 59.6% neutrophils, 22.1% lymphocytes, 10.9% monocytes, 5.0% eosinophils, and 1.6% basophils. The hemoglobin and hematocrit are 17.0 and 49.2 respectively. The platelet count is 257. A vancomycin trough collected on January 25, 2019, was 7.3. A lumbar puncture performed on January 18, 2019, revealed cloudy cerebrospinal fluid, xanthochromic in color with 1640 white blood cells with 6 neutrophils, 88 lymphocytes, and 4 monocytes, 14 red blood cells, CSF glucose of 29, and CSF total protein of 177.2. HIV #1 and #2 antibody nonreactive. HIV P24 antigen nonreactive. A CSF Gram stain and culture revealed no white blood cells, no organisms. The culture revealed no growth after seven days. DIAGNOSTIC STUDIES: CT of the brain without contrast on 01/18/2019: On my review, there is no evidence of recent or remote large territorial ischemia, hemorrhage, mass, or mass effect. Cerebral volumes are appropriate for age. There are no findings suggestive of chronic small vessel ischemic disease. ASSESSMENT AND PLAN: Mr. Brar is a 43-year-old man without significant past medical history, admitted to [facility] on January 18, 2019, with meningitis-bacterial per Infectious Disease. Prior to and during this hospitalization, the patient has experienced frequent headaches, which are described in history of present illness. Overall, the patient's headaches are gradually improving. Mr. Brar reports his pain is well controlled with current medications. The patient's neurological examination is nonfocal. His laboratory data and other diagnostic studies have been reviewed and are documented above. In my opinion, the patient's headaches are secondary to meningitis. Mr. Brar was reassured, his headaches should gradually resolve as he continues treatment for meningitis. There are no other recommendations from the Neurology Service at this time. Mr. Brar may be discharged to home. Thank you for this consultation. TIME SPENT: 50 minutes. Nelli Wright MD CP/TORY /[id number]
[2019-01-26] MEDS: VANCOMYCIN HCL 2 GM in SODIUM CHLORIDE 0.9% 500ML 500 ML IV SCH (03:50)
[2019-01-26 04:00] VITALS: BP 134/77
--- NOTE | 2019-01-26 07:00 | NUR ---
received am report from nurse and morning rounds done. pt is sleeping, no s/s of distress. call light within reach and side rails up
--- NOTE | 2019-01-26 07:19 | NUR ---
venetian blind washer is at the bedside preparing the blood donation, 250 ml will be removed per the orders.
[2019-01-26 07:58] VITALS: BP 150/94
[2019-01-26] MEDS ORDERED: ALPRAZOLAM 1 MG TAB PO ONE (09:00)
[2019-01-26] MEDS: CEFTRIAXONE SOD 2 GM/NS 100 ML 100 ML IV SCH (10:44)
[2019-01-26 11:00] VITALS: BP 150/94
[2019-01-26 12:00] VITALS: BP 144/79
[2019-01-26] MEDS ORDERED: ONDANSETRON HCL 4 MG ORAL DISINTEGRATING TAB PO PRN (13:00)
--- NOTE | 2019-01-26 22:46 | Progress Note ---
DATE: 01/26/2019 CHIEF COMPLAINT: Patient with polycythemia and meningitis. OBJECTIVE: VITAL SIGNS: Reviewed as per electronic medical record. HEENT: PERRLA. Extraocular movement intact. Head is atraumatic and normocephalic. NECK: Supple. CVS: S1 and S2 audible. RESPIRATORY: Decreased bilateral air entry. ABDOMEN: Soft. Positive bowel sounds. EXTREMITIES: Negative edema. NEURO: The patient is alert and awake. LABORATORY DATA: Reviewed as per electronic medical record. ASSESSMENT AND PLAN: The patient presents with meningitis, treated with IV antibiotics. He was also noted to have polycythemia. He underwent a workup including JAK2 and erythropoietin level. He also started on phlebotomies. He will follow up in outpatient setting for continuation of workup and treatment. MD ABBIE Raygoza/MODL /[id number]
--- NOTE | 2019-01-27 08:13 | Discharge Summary ---
FINAL DISCHARGE DIAGNOSES: 1. Bacterial meningitis. 2. Severe headache secondary to bacterial meningitis. 3. Polycythemia. CONSULTANTS: We had Infectious Disease, Hematology, and Neurology. PHYSICAL EXAMINATION: VITAL SIGNS: Temperature is 96.6, pulse 88, respiratory rate is 20, blood pressure is 144/79, pulse ox 96% on room air. LAB FINDINGS: Show white count 11.9, hemoglobin 17, hematocrit 49, and platelets of 257. Chemistry; sodium 139, potassium 3.9, chloride 104, bicarb 26, anion gap of 12, BUN is 9, creatinine is 0.84, glucose is 87, calcium is 9.2. Erythropoietin level was 10.6. LP showed cloudy xanthochromic, wbc's 16 to 40, rbc's 14, total cell count of 100, neutrophils of 6, lymphocytes of 88, glucose was 29, and total protein was 177. JAK2 mutations are all pending. He need to follow up with Hematology. HIV was nonreactive. MICROBIOLOGY: CSF culture showed no growth after 7 days. IMAGING STUDIES: CT brain found to be negative. HOSPITAL COURSE: This is a 43-year-old male, who has been complaining of severe headaches, ongoing and subjective fevers for the last 7 to 10 days prior to [facility] to [facility]. The patient has visited the ER apparently twice already with complaints of headaches, was told it was flu-like symptoms and discharged home. On his last ER visit, the physician decided to perform an LP and the patient was found to have underlying bacterial meningitis. The CSF analysis was consistent with bacterial meningitis, but the microbiology was found to be negative. The patient was on antibiotics prior to the last ER visit, which could mask the underlying infection that he truly had. Infectious Disease was consulted and the patient was on IV Rocephin as well as vancomycin. He was treated accordingly for significant period of time while here. A PICC line was placed and he will oyster picker additional IV antibiotics, Rocephin and vancomycin at the [facility] of Dr. Candelaria's office later this afternoon at 03:00 p.m. on 01/26/2019. He did develop headache, which required pain control. The patient continued to have headache, in which Neurology was consulted. CT brain was found to be negative. At this time, the patient was claustrophobic initially to get MRI, but on discharge, his headaches were improving and he opted against it and at this time will follow up with the ID clinic in the event if his headaches do return back. It was felt that his headaches could be from underlying meningitis and it does take a while according to the consultants that the headaches will linger until improves over time. He verbalized understanding. Also while here, he was found to have an elevated hemoglobin level of 18.9. I did consult with Hematology and a phlebotomy was performed. His discharge hemoglobin was 17. JAK2 mutation was a send out. He needs to follow up with Hematology as an outpatient for the JAK2 mutation analysis as well as further workup in terms of his polycythemia. This also could be a contributing factor to his underlying headaches. On discharge, the patient was doing well with no other complaints. He was improving tremendously and was cleared for discharge by all consultants. On the day of discharge, vital signs were stable, labs reviewed and stable. The patient seen and evaluated, and examined thoroughly on the day of discharge. No other complaints. The patient verbalized understanding and agreed to plan of care to follow up accordingly as an outpatient with the primary care physician in 1 week, infectious Disease today on 01/26/2019 at 03:00 p.m. to oyster picker IV antibiotics, Hematology in the next 1 to 2 weeks, and Neurology in 2 weeks' time. The patient verbalized and agrees with plan of care as described above. MEDICATIONS: See med reconciliation form. DISPOSITION: Home. CONDITION: Stable. DIET: Heart healthy. In the event of any worsening symptoms, the patient advised to come back to the ED for further evaluation. Discharge summary took greater than 35 minutes. Once again, the patient is to oyster picker antibiotics today at Dr. Candelaria's office at 03:00 p.m. on 01/26/2019, for continuous treatment for his underlying meningitis. MD RIDDHI Crooks/TORY /[id number]
== END 2019-01-26 13:06 | disposition home or self-care (01) | DRG 96 ==
LOC: FSED 18:07 → ERHOLD 01-19 00:41 → MED/SURG2 01-19 02:03
PROVIDERS: ADMIT Internal Medicine; ATTEND Internal Medicine
PROC: 02HV33Z Insertion of Infusion Device into Superior Vena Cava, Percutaneous Approach (ICD-10-PCS; principal; 2019-01-20)
DX: G00.9 Bacterial meningitis, unspecified (principal); G44.89 Other headache syndrome; D75.1 Secondary polycythemia
CPT/HCPCS: 36415; 36569; 62270; 70450; 71045; 80048; 80076; 80202; 81003; 81220; 82668; 82945; 84157; 85025; 87070; 87205; 87390; 89051; 96374; 96375; 99284; G0433; G0435; J0696; J1885; J2270; J2405; J3030; J3370; J7030; J7040; J7050; Q9967